=== PATIENT | female | born 1990 | race Caucasian/White ===

== ENCOUNTER 2021-12-28 04:04 | Emergency (ER) | payer OTHER ==
[~2021-12-28 04:04] MED LIST: LODINE CAP 300300 MG PO
[2021-12-28 04:30] LABS: HEMOGLOBIN 12.8 gm/dl (12.3-15.3); RED BLOOD COUNT 4.07 M/UL (4.00-5.10); WHITE BLOOD COUNT 9.6 K/UL (4.5-11.0)
[2021-12-28 04:56] LABS: BUN/CREATININE RATIO 13 (0-10)
== END 2021-12-28 09:25 | disposition home or self-care (01) ==
LOC: ER1 04:04
DX: O03.9 Complete or unspecified spontaneous abortion without complication (principal); N83.209 Unspecified ovarian cyst, unspecified side; Z90.49 Acquired absence of other specified parts of digestive tract
CPT/HCPCS: 76817; 80053; 81001; 83690; 84702; 85025; 86900; 86901; 87086; 99284